=== PATIENT | female | born 1980 | race Caucasian/White ===

== ENCOUNTER 2018-10-07 18:57 | Inpatient (IN) | payer MEDICAID ==
[~2018-10-07] VITALS: Ht 165.1 cm; Wt 77.1 kg
[~2018-10-07 18:57] MED LIST: ACET-6134 PO; FERR325E14 PO; PREN-385 PO
[2018-10-07 20:29] VITALS: BP 107/61
[2018-10-07] MEDS ORDERED: OXYTOCIN 10 UNITS/ML VIAL IM SCH (23:40)
[2018-10-07] MEDS ORDERED: METHYLERGONOVINE 0.2 MG/ML AMP IM PRN (23:40)
[2018-10-07] MEDS ORDERED: LACTATED RINGERS 1,000 ML IV SCH (23:40)
[2018-10-07] MEDS ORDERED: NALBUPHINE 10 MG/ML AMP IVP PRN (23:40)
[2018-10-07] MEDS ORDERED: PROMETHAZINE 25 MG/ML VIAL IVP PRN (23:40)
[2018-10-07] MEDS ORDERED: OXYTOCIN 20 UNITS in LACTATED RINGERS 1,000 ML IV SCH (23:40)
[2018-10-08 00:11] LABS: BASOPHILS % (AUTO) 0.1 % (0.0-2.0); EOSINOPHILS # (AUTO) 0.1 K/uL (0-0.4); EOSINOPHILS % (AUTO) 0.6 % (0.0-4.0); HEMATOCRIT 38.2 % (36-48); LYMPHOCYTES # (AUTO) 1.6 K/uL (2.5-16.5); LYMPHOCYTES % (AUTO) 19.1 % (20.5-51.1); MEAN CORPUSCULAR HEMOGLOBIN 31 pg (27-31); MEAN CORPUSCULAR HGB CONC 34 g/dL (33-37); MONOCYTES # (AUTO) 0.6 K/uL (0.8-1.0); NEUTROPHILS # (AUTO) 6.1 K/uL (1.8-7.7); NEUTROPHILS % (AUTO) 73.2 % (42.2-75.2); PLATELET COUNT (AUTO) 117 K/uL (140-450); RED CELL DISTRIBUTION WIDTH 15.1 % (11.6-13.7); WHITE BLOOD COUNT (AUTO) 8.4 K/uL (4.8-10.8)
[2018-10-08 00:11] LABS: APPEARANCE,URINE SL CLOUDY (CLEAR); BILIRUBIN,URINE NEGATIVE (NEGATIVE); BLOOD, URINE 2+ (NEGATIVE); COLOR,URINE YELLOW (YELLOW); LEUKOCYTE ESTERASE ,URINE 1+ (NEGATIVE); NITRITE, URINE NEGATIVE (NEGATIVE); PH,URINE 7.5 (5.0-9.0); UGLUCOSE NEGATIVE (NEGATIVE)
[2018-10-08 00:28] LABS: RBC,URINE 11-20 (MOD) /HPF (0-5)
[2018-10-08] MEDS ORDERED: OXYTOCIN 20 UNITS/LR PREMIX 1,000 ML IV ONE (03:19)
[2018-10-08] MEDS ORDERED: LIDOCAINE 1% 500 MG/50 ML VIAL INJ ONE (05:45)
[2018-10-08] MEDS ORDERED: NALBUPHINE 10 MG/ML AMP ONE (07:12)
[2018-10-08] MEDS ORDERED: LIDOCAINE 1% 500 MG/50 ML VIAL ONE (07:30)
[2018-10-08] MEDS ORDERED: BUPIVACAINE 0.125%/NS PREMIX 250 ML ONE (07:36)
[2018-10-08] MEDS ORDERED: BUPIVACAINE 0.125%/NS PREMIX 250 ML EPI SCH (07:45)
--- NOTE | 2018-10-08 08:30 | NUR ---
PATIENT HAS BEEN SCREENED AND CATEGORIZED LOW NUTRITION RISK. PATIENT WILL BE SEEN WITHIN 7 DAYS OF ADMISSION. 10/14/[address]
[2018-10-08] MEDS ORDERED: OXYTOCIN 10 UNITS/ML VIAL ONE (10:52)
[2018-10-08] MEDS ORDERED: OXYTOCIN 20 UNITS in LACTATED RINGERS 1,000 ML IV SCH (14:11)
[2018-10-08] MEDS ORDERED: BISACODYL 5 MG TABEC PO PRN (14:15)
[2018-10-08] MEDS ORDERED: IBUPROFEN 600 MG TAB PO PRN (14:15)
[2018-10-08] MEDS ORDERED: ACETAMINOPHEN 325 MG TAB PO PRN (14:15)
[2018-10-08] MEDS ORDERED: BENZOCAINE/MENTHOL 20%-0.5% 60 GM CAN TP PRN (14:15)
[2018-10-08] MEDS ORDERED: MEASLES, MUMPS, AND RUBELLA 1 VIAL SQVAC PRN (14:15)
[2018-10-09] MEDS: LACTATED RINGERS 1,000 ML IV SCH (09:24)
[2018-10-09 11:47] LABS: BASOPHILS % (AUTO) 0.4 % (0.0-2.0); EOSINOPHILS % (AUTO) 0.4 % (0.0-4.0); HEMATOCRIT 35.1 % (36-48); HEMOGLOBIN 11.8 g/dL (12.0-16.0); LYMPHOCYTES # (AUTO) 1.3 K/uL (2.5-16.5); LYMPHOCYTES % (AUTO) 16.2 % (20.5-51.1); MEAN CORPUSCULAR HEMOGLOBIN 31 pg (27-31); MEAN CORPUSCULAR HGB CONC 34 g/dL (33-37); MEAN CORPUSCULAR VOLUME 91.6 fL (80-94); MONOCYTES # (AUTO) 0.5 K/uL (0.8-1.0); MONOCYTES % (AUTO) 6.2 % (1.7-9.3); NEUTROPHILS # (AUTO) 6.1 K/uL (1.8-7.7); NEUTROPHILS % (AUTO) 76.8 % (42.2-75.2); PLATELET COUNT (AUTO) 115 K/uL (140-450); RED BLOOD CELL COUNT(AUTO) 3.83 MIL/uL (4.20-5.40); WHITE BLOOD COUNT (AUTO) 7.9 K/uL (4.8-10.8)
[2018-10-09] MEDS ORDERED: BUPIVACAINE-MPF 0.75% 10 ML VIAL INJ ONE (13:48)
[2018-10-09] MEDS ORDERED: fentaNYL 0.05 MG/ML VIAL ONE (13:57)
[2018-10-09] MEDS ORDERED: BUPIVACAINE-MPF/EPI 0.25% 30 ML VIAL INJ ONE (14:08)
[2018-10-09] MEDS ORDERED: HYDROmorphone 1 MG/ML AMP IVP PRN (14:25)
[2018-10-09] MEDS ORDERED: ONDANSETRON 4 MG/2 ML VIAL IVP PRN (14:25)
[2018-10-09] MEDS ORDERED: LACTATED RINGERS 1,000 ML IV SCH (15:56)
[2018-10-09] MEDS ORDERED: IBUPROFEN 600 MG TAB PO PRN (16:00)
[2018-10-09] MEDS ORDERED: KETOROLAC 30 MG/ML VIAL IVP PRN (16:00)
[2018-10-09] MEDS ORDERED: ONDANSETRON 4 MG/2 ML VIAL ONE (16:45)
[2018-10-10 01:52] LABS: RAPID PLASMA REAGIN NON-REACTIVE (Non Reactiv)
[2018-10-10] MEDS: LACTATED RINGERS 1,000 ML IV SCH (04:11)
[2018-10-10 09:00] LABS: EOSINOPHILS # (AUTO) 0.1 K/uL (0-0.4); MEAN CORPUSCULAR HEMOGLOBIN 31 pg (27-31); MONOCYTES # (AUTO) 0.4 K/uL (0.8-1.0)
[2018-10-10 09:11] LABS: BASOPHILS % (AUTO) 0.5 % (0.0-2.0); EOSINOPHILS % (AUTO) 1.4 % (0.0-4.0); HEMATOCRIT 37.2 % (36-48); HEMOGLOBIN 12.5 g/dL (12.0-16.0); LYMPHOCYTES # (AUTO) 1.5 K/uL (2.5-16.5); LYMPHOCYTES % (AUTO) 18.7 % (20.5-51.1); MEAN CORPUSCULAR HGB CONC 34 g/dL (33-37); MEAN CORPUSCULAR VOLUME 91.4 fL (80-94); NEUTROPHILS # (AUTO) 5.9 K/uL (1.8-7.7); NEUTROPHILS % (AUTO) 74.4 % (42.2-75.2); PLATELET COUNT (AUTO) 139 K/uL (140-450); RED BLOOD CELL COUNT(AUTO) 4.06 MIL/uL (4.20-5.40); RED CELL DISTRIBUTION WIDTH 15.5 % (11.6-13.7)
[2018-10-10] MEDS ORDERED: IBUP-1842 PO (14:28)
== END 2018-10-10 16:00 | disposition home or self-care (01) | DRG 560 ==
LOC: MLD 18:57 → OBSVTOIN 23:45 → MFCC 10-08 14:10
PROVIDERS: ADMIT Obstetrics & Gynecology; ATTEND Obstetrics & Gynecology
PROC: 10E0XZZ Delivery of Products of Conception, External Approach (ICD-10-PCS; principal; 2018-10-08)
PROC: 0HQ9XZZ Repair Perineum Skin, External Approach (ICD-10-PCS; 2018-10-08)
PROC: 10907ZC Drainage of Amniotic Fluid, Therapeutic from Products of Conception, Via Natural or Artificial Opening (ICD-10-PCS; 2018-10-08)
PROC: 3E033VJ Introduction of Other Hormone into Peripheral Vein, Percutaneous Approach (ICD-10-PCS; 2018-10-08)
PROC: 3E0R3BZ Introduction of Anesthetic Agent into Spinal Canal, Percutaneous Approach (ICD-10-PCS; 2018-10-08)
PROC: 00HU33Z Insertion of Infusion Device into Spinal Canal, Percutaneous Approach (ICD-10-PCS; 2018-10-08)
DX: O69.81X0 Labor and delivery complicated by cord around neck, without compression, not applicable or unspecified (principal); O70.0 First degree perineal laceration during delivery; Z37.0 Single live birth; Z3A.39 39 weeks gestation of pregnancy
CPT/HCPCS: G0378 ×5; 36415; 51702; 59409; 76815; 81001; 85025; 86592; 86886; 86900; 86901; 87086; 87186; 88302; J1885; J2001; J2300; J2405; J2590; J3010; J3490; J7120; Q0092